=== PATIENT | male | born 1985 | race Caucasian/White ===

== ENCOUNTER → 2020-05-16 | Outpatient (CLI) | payer OTHER ==
[~2020-05-16] MED LIST: ALBU2.5V8 INH; ATOR10TA60 PO; METF500T16 PO; OMEP40CA45 PO; SEMA1PEN SQ; ranitidine
== END | disposition home or self-care (01) ==
LOC: LAB 06:17
PROVIDERS: ATTEND Registered Nurse
DX: Z11.59 Encounter for screening for other viral diseases (principal)
CPT/HCPCS: C9803; U0003; 87426

== ENCOUNTER → 2020-05-18 | Day surgery (SDC) | payer OTHER ==
[~2020-05-18] MED LIST changes: +IV RINGERS SOLUTION,LACTATED 1,000 ML IV SCH; +ONDANSETRON PF 4 MG/2 ML VIAL. IV PRN; +PROPOFOL 10,000 MCG/ML (20ML) VIAL IV ONE
[2020-05-18 12:30] VITALS: BP 117/56
--- NOTE | 2020-05-22 15:07 | PATHOLOGY ---
[facility] Accession Number: [id number] . 01 Material submitted: . PART A: stomach - BX ANTRUM-GASTRITIS PART B: duodenum - BX DUODENUM . 01 Clinical history: . GERD . 02 Diagnosis: A. Gastric biopsies, gastric antrum: - Chronic gastritis, mild. . B. Duodenal biopsies: - Patchy nonspecific duodenitis with focal erosion and acute inflammation. (JPM:[facility] 05/22/2020) [facility] 05/22/2020 1440 Local . 02 Comment: Sections of the gastric biopsy reveal gastric antral mucosa showing congestion and mild chronic inflammation. A properly controlled immunoperoxidase stain for Helicobacter is negative for Helicobacter organisms. . Sections of the duodenal biopsy reveal segments of duodenal and small intestine mucosa showing a patchy increase of chronic inflammatory cells with a few admixed neutrophils. There is also focal superficial mucosal erosion and acute inflammation. There are no sprue-like changes. (JPM:[facility] 05/22/2020) . Special stain performed: Immunoperoxidase for Helicobacter on A1. . 02 Electronically signed: . Dimitri Bartholomew MD, Pathologist NPI- [id number] . 01 Gross description: . A. The specimen is received in formalin, labeled "Tomi Reyes Boo, antrum gastritis". Received are two segments of pale english soft tissue ranging in size from 0.3 to 0.4 cm in maximum dimensions. The specimen is submitted entirely in cassette A1. . B. The specimen is received in formalin, labeled "Tomi Reyes Boo, duodenum". Received are five segments of pale english soft tissue ranging in size from 0.3 to 0.7 cm in maximum dimensions. The specimen is submitted entirely in cassette B1. (CAA; 05/21/2020) QAC/QAC 05/21/2020 1624 [facility] . 02 Pathologist provided ICD-10: K29.50, K29.80 . 02 CPT . 067350, 080568, [id number] Specimen Comment: A courtesy copy of this report has been sent to [phone], [phone] Specimen Comment: [id number] Specimen Comment: Report sent to ,DR SALAMANCA / DR FRASER Specimen Comment: A duplicate report has been generated due to demographic updates. Performed at: 01 [facility] [address] [id number] MD Rajesh Felix MD Phone: [phone] Performed at: 02 [facility] [address] [place], [place] [id number] MD Dimitri Bartholomew MD Phone: [phone]
== END | disposition home or self-care (01) ==
LOC: SURG 10:51
PROVIDERS: ATTEND Internal Medicine Gastroenterology
DX: R12 Heartburn (principal); K29.50 Unspecified chronic gastritis without bleeding; K29.80 Duodenitis without bleeding; K21.9 Gastro-esophageal reflux disease without esophagitis; E78.00 Pure hypercholesterolemia, unspecified; J45.909 Unspecified asthma, uncomplicated; E66.01 Morbid (severe) obesity due to excess calories; F41.9 Anxiety disorder, unspecified; F17.210 Nicotine dependence, cigarettes, uncomplicated; R06.83 Snoring; M19.90 Unspecified osteoarthritis, unspecified site; E11.9 Type 2 diabetes mellitus without complications; Z79.84 Long term (current) use of oral hypoglycemic drugs; Z79.899 Other long term (current) drug therapy; Z68.42 Body mass index [BMI] 45.0-49.9, adult; Z90.49 Acquired absence of other specified parts of digestive tract; Z98.890 Other specified postprocedural states; Z88.8 Allergy status to other drugs, medicaments and biological substances
CPT/HCPCS: 43239; 88305; 88342; J2704; J7120; 45380

== ENCOUNTER 2020-10-31 21:20 | Emergency (ER) | payer OTHER ==
[~2020-10-31] VITALS: Ht 180.3 cm; Wt 132.0 kg
[~2020-10-31 21:20] MED LIST changes: -IV RINGERS SOLUTION,LACTATED 1,000 ML IV SCH; -ONDANSETRON PF 4 MG/2 ML VIAL. IV PRN; -PROPOFOL 10,000 MCG/ML (20ML) VIAL IV ONE
--- NOTE | 2020-10-31 21:41 | EKG ---
[address] [address] Test Date: 2020-10-31 Test Time: 21:36:07 Pat Name: SOHAN LOERA Department: Room: Gender: M Certified Alcohol Counselor: : 1985 Requested By: TAMMIE COONEY Order Number: [id number] Reading MD: Measurements Intervals Mcgrew Rate: 95 P: 44 NV: 176 QRS: 25 QRSD: 86 T: 34 QT: 334 QTc: 423 Interpretive Statements SINUS RHYTHM NORMAL ECG RI6.02 No previous ECG available for comparison
[2020-10-31] MEDS ORDERED: ASPIRIN 325 MG TABLET PO ONE (21:45)
--- NOTE | 2020-10-31 21:51 | PHYS DOC ---
General Adult EDM: Chief Complaint: CHEST PAIN HPI: HPI: Patient is a [age] year old [sex] who presents with [] Review of Systems: Review of Systems: Constitutional: Denies fever or chills Eyes: Denies change in visual acuity HENT: Denies nasal congestion or sore throat Respiratory: Denies cough or shortness of breath Cardiovascular: Denies chest pain or edema GI: Denies abdominal pain, nausea, vomiting, bloody stools or diarrhea : Denies dysuria Musculoskeletal: Denies back pain or joint pain Integument: Denies rash Neurologic: Denies headache, focal weakness or sensory changes Endocrine: Denies polyuria or polydipsia Lymphatic: Denies swollen glands Psychiatric: Denies depression or anxiety Current Medications: Current Meds: Current Medications Medications (Trade) Dose Ordered Sig/Geovanna Start Time Stop Time Status Last Admin Dose Admin Aspirin (Lakeisha Aspirin) 325 mg 1X ONCE 10/31/20 21:45 10/31/20 21:46 DC Allergies: Allergies: Allergies Coded Allergies Type Severity Reaction Last Updated Verified sucralfate Allergy Unknown 05/18/20 Yes Physical Exam: PE: Constitutional: Well developed, well nourished, no acute distress, non-toxic appearance. [] HENT: Normocephalic, atraumatic, bilateral external ears normal, oropharynx moist, no oral exudates, nose normal. [] Eyes: PERRLA, EOMI, conjunctiva normal, no discharge. [] Neck: Normal range of motion, no tenderness, supple, no stridor. [] Cardiovascular:Heart rate regular rhythm, no murmur [] Lungs & Thorax: Bilateral breath sounds clear to auscultation [] Abdomen: Bowel sounds normal, soft, no tenderness, no masses, no pulsatile masses. [] Skin: Warm, dry, no erythema, no rash. [] Back: No tenderness, no CVA tenderness. [] Extremities: No tenderness, no cyanosis, no clubbing, ROM intact, no edema. [] Neurologic: Alert and oriented X 3, normal motor function, normal sensory function, no focal deficits noted. [] Psychologic: Affect normal, judgement normal, mood normal. [] EKG: EKG: @2136 NSR at 95bpm, NO ST elevation, QRS 86ms, QT/QTc 334/423ms Radiology/Procedures: Radiology/Procedures: PROCEDURE: PORTABLE CHEST 1V EXAM: Chest, single view. HISTORY: Chest pain. COMPARISON: 11/26/2016 FINDINGS: A frontal view of the chest is obtained. There is no infiltrate, pleural effusion or pneumothorax. The heart is normal in size. IMPRESSION: No acute pulmonary finding. Electronically signed by: Rosemarie Mo MD (10/31/2020 10:02 PM) [facility] Heart Score: HEART Score for Chest Pain: HEART Score for Chest Pain Response (Comments) Value History Moderately Suspicious 1 ECG Normal 0 Age < 45 0 Risk Factors >3 Risk Factors or Hx CAD 2 Troponin < Normal Limit 0 Total 3 Risk Factors: Risk Factors: DM, Current or recent (<one month) smoker, HTN, HLP, family history of CAD, obesity. Risk Scores: Score 0 - 3: 2.5% MACE over next 6 weeks - Discharge Home Score 4 - 6: 20.3% MACE over next 6 weeks - Admit for Clinical Observation Score 7 - 10: 72.7% MACE over next 6 weeks - Early Invasive Strategies Course & Med Decision Making: Course & Med Decision Making Pertinent Labs and Imaging studies reviewed. (See chart for details) [] Dragon Disclaimer: Dragon Disclaimer: This electronic medical record was generated, in whole or in part, using a voice recognition dictation system. Departure Departure: Impression: Primary Impression: Atypical chest pain Disposition: 01 DC HOME SELF CARE/HOMELESS Condition: STABLE Referrals: NON,STAFF (PCP) Patient Instructions: Chest Pain (Nonspecific), [id number] Additional Instructions: Follow closely with your doctor regarding your chest pain. Discontinue smoking. Take over the counter Tylenol and/or Ibuprofen for pain or discomfort. Scripts Famotidine (PEPCID) 20 Mg Tablet 1 TAB PO BID for Gastritis, #20 TAB Prov: TAMMIE COONEY DO 10/31/20 PERC Rule for PE PERC Rule for PE Response (Comments) Value Age > 50: No 0 HR > 100: No 0 Sa02 on room air <95%: No 0 Unilateral leg swelling: No 0 Hemoptysis: No 0 Recent surgery or trauma: No 0 Prior PE or DVT: No 0 Hormone use: No 0 Total 0 TAMMIE COONEY DO Oct 31, 2020 21:51
[2020-10-31 21:56] LABS: BASO # 0.1 x10^3/uL (0.0-0.2); BASO % 1 % (0-3); EOS # 0.3 x10^3/uL (0.0-0.7); EOS % 3 % (0-3); HEMATOCRIT 45.2 % (39.0-53.0); HEMOGLOBIN 15.2 g/dL (13.0-17.5); LYMPH # 2.8 x10^3/uL (1.0-4.8); LYMPH % 22 % (24-48); MEAN CORPUSCULAR HEMOGLOBIN 29 pg (25-35); MEAN CORPUSCULAR HGB CONC 34 g/dL (31-37); MEAN CORPUSCULAR VOLUME 86 fL (79-100); MONO # 1.2 x10^3/uL (0.0-1.1); MONO % 10 % (0-9); NEUT # 8.2 x10^3uL (1.8-7.7); NEUT % 65 % (31-73); PLATELET COUNT 343 x10^3/uL (140-400); RED BLOOD COUNT 5.26 x10^6/uL (4.30-5.70); RED CELL DISTRIBUTION WIDTH 13.5 % (11.5-14.5); WHITE BLOOD COUNT 12.7 x10^3/uL (4.0-11.0)
[2020-10-31] MEDS ORDERED: DEXAMETHASONE SOD PHOS 4 MG/ML VIAL. IVP ONE (22:00)
--- NOTE | 2020-10-31 22:04 | RAD ---
EXAM: Chest, single view. HISTORY: Chest pain. COMPARISON: 11/26/2016 FINDINGS: A frontal view of the chest is obtained. There is no infiltrate, pleural effusion or pneumothorax. The heart is normal in size. IMPRESSION: No acute pulmonary finding. Electronically signed by: Rosemarie Mo MD (10/31/2020 10:02 PM) [facility]
[2020-10-31 22:11] LABS: CALCIUM 9.4 mg/dL (8.5-10.1); CREATININE 1.1 mg/dL (0.7-1.3); GFR 77.1; POTASSIUM 3.8 mmol/L (3.5-5.1)
[2020-10-31 22:22] LABS: ALBUMIN 3.8 g/dL (3.4-5.0); TOTAL BILIRUBIN 0.6 mg/dL (0.2-1.0); TOTAL PROTEIN 7.5 g/dL (6.4-8.2)
[2020-10-31] MEDS ORDERED: FAMO-63 PO (22:42)
[2020-10-31 23:05] VITALS: BP 114/67
== END 2020-10-31 23:05 | disposition home or self-care (01) ==
LOC: ER 21:20
DX: R07.89 Other chest pain (principal); Z88.8 Allergy status to other drugs, medicaments and biological substances
CPT/HCPCS: 36415; 71045; 80053; 82553; 83690; 83735; 83880; 84484; 85025; 93005; 96374; 99285; J1100